=== PATIENT | female | born 1940 | race Caucasian/White ===

== ENCOUNTER 2016-09-09 08:52 | Emergency (ER) | payer MEDICARE, BC ==
[~2016-09-09] VITALS: Ht 151.1 cm; Wt 72.7 kg
[~2016-09-09 08:52] MED LIST: ACET-820 PO; CETI10CA19 PO; HYDR12.523 PO; LISI-621 PO; MELO-31 PO; METO100T97 PO; VITA1TAB21 PO; [UNRECOGNIZED DRUG - CODE] PO; [UNRECOGNIZED DRUG - OTHER] PO
[2016-09-09 08:58] VITALS: Ht 151.1 cm; Wt 72.7 kg
--- OUTSIDE RECORDS SUMMARY | 2016-09-09 08:58 | XMS REPORT | Continuity of Care Document ---
Author Author Lidia Gong RN [facility] Ambulatory Address [facility] [place] [address] Phone Unavailable Care Team Providers Care Waste Reduction Coordinator Name Role Phone Tal Espinosa PP Unavailable Payers Payer name Insurance type Covered republican ID Authorization(s) Unknown Problems Condition Effective Dates (start - stop) Clinical Status Pneumonia Vaccine - NEED FOR PROPHYLACTIC VACCINATION WITH COMBINED [id number] ( DTP) (DTAP) VACCINE - Hypertension, Benign - *Chronic Depression - *Chronic Anxiety - *Chronic Headache - *Chronic Urinary Tract Infection - *Acute Foot pain - *Chronic Dependent edema - *Chronic Hypertension, Benign - *Chronic Depression - *Chronic Anxiety - *Chronic Hypertension, Benign - Chronic Depression - Chronic Anxiety - Chronic Hypertension, Benign - *Chronic Depression - *Chronic Anxiety - *Chronic Headache - *Chronic Hypertension, Benign - *Controlled Tension headache - *Chronic Depression - *Controlled Anxiety - *Chronic Upper Respiratory Infection, Acute - *Acute Urinary incontinence - *Acute Other functional disorder of bladder - *Acute Anxiety - *Chronic Hypertension, Benign - *Chronic Depression - *Chronic OVERWEIGHT - TENSION HEADACHE - 311 - DEPRESSIVE DISORDER NEC - MGRN WO AURA WO NTRC MGR - INFEC OTITIS EXTERNA NOS - Hypertension, Benign - *Chronic Depression - *Chronic Anxiety - *Chronic Ankle pain, chronic - *Chronic Other chronic pain - *Chronic Family History Family Member Diagnosis Age At Onset Status Unknown Social History Social History Element Description Quantity Unknown Allergies, Adverse Reactions, Alerts Substance Reaction Severity Status CIPROFLOXACIN PALPITATIONS Unknown CIPROFLOXACIN HCL PALPITATIONS Unknown Medications Medication Instructions Dosage Effective Dates (start - stop) Status Zyrtec 10 mg tablet take 1 tablet (10MG) by oral route every day as needed 10 MG - Active Aleve 220 mg tablet take 1 tablet (220MG) by oral route every 12 hours as needed as needed 220 MG - Active Vitamin B-100 Complex tablet takes 1 qd - Active Vitamin D3 1,000 unit capsule take daily - Active metoprolol tartrate 100 mg tablet Take 1 tablet by mouth twice a day. - Active lisinopril 20 mg tablet take 1 tablet (20MG) by oral route every day 20 MG - Active hydrochlorothiazide 25 mg tablet Take 1 tablet by mouth every day. 2013 - Active acetaminophen 300 mg-codeine 30 mg tablet Take 0.5 tablets by mouth every 4 to 6 hours as needed for migraines. - Active carisoprodol 350 mg tablet Take 1 tablet by mouth every day. - Active Immunizations Vaccine Date Status Comments Tdap (Boostrix r) completed Pneumo (2 yrs or older)(PPV) completed Flu (split) (3 yrs or older) cancelled - Cancelled reason: Duplicate order. Results Test Name Date and Time Measure Units Reference Range Abnormal Flag Comments Panel Description: Chemistry Profile Glucose 11:01:00 93 mg/dL 70-99 BUN 11:01:00 26 mg/dL 10-20 H Creatinine 11:01:00 0.83 mg/dL 0.57-1.11 Calcium 11:01:00 9.6 mg/dL 8.9-10.5 Sodium 11:01:00 143 mEq/L 135-144 Potassium 11:01:00 4.2 mEq/L 3.5-5.2 Chloride 11:01:00 108 mEq/L 99-111 CO2 11:01:00 26 mEq/L 22-31 Albumin 11:01:00 4.1 g/dL 3.4-4.8 Bilirubin Total 11:01:00 0.5 mg/dL 0.2-1.2 Alkaline Phosphatase 11:01:00 106 U/L 40-150 Protein 11:01:00 7.1 g/dL 6.2-8.1 ALT (SGPT) 11:01:00 36 U/L 0-55 AST (SGOT) 11:01:00 37 U/L 5-34 H Anion Gap 11:01:00 9 3-20 Globulin 11:01:00 3.0 g/dL 1.8-4.0 Testing performed at [facility] [address] [place] [address] [employer]phalt Distributor Operator Josué Vasquez MD Panel Description: EGFR-[facility] eGFR 11:01:00 >60 mL/min >60 Multiply eGFR results by 1.21 for race.Testing performed at [facility] [address] [place] [address] [employer]phalt Distributor Operator Josué Vasquez MD Vital Signs Date / Time: Height Weight Pulse Rate Blood Pressure Temperature /10:06:00 57.50 in 169.00 lbs 72 /min 132/82 mm[Hg] 97.4 F Procedures Procedure Date PNEUMOCOCCAL VACCINE,ADULT,SQ OR IM ADMINISTRATION OF PNEUMONIA SHOT TDAP VACCINE >7 IM IMMUNIZ,ADMIN,SINGLE Encounters Encounter Location Date Patient Visit [facility] Patient Visit [facility] Patient Visit [facility] Patient Visit [facility] Patient Visit [facility] Patient Visit [facility] Patient Visit [facility] Patient Visit [facility] Patient Visit [facility] Patient Visit [facility] Patient Visit [facility] Patient Visit Conversion Patient Visit [facility] Patient Visit [facility] Advance Directives Directive Effective Date Unknown
--- OUTSIDE RECORDS SUMMARY | 2016-09-09 08:58 | XMS REPORT | Referral Summary ---
Author Author [facility], Family Medicine Organization [facility] Address Unknown Phone Unavailable Care Team Providers Care Cytology Teacher Name Role Phone Romeo Espinosa Primary Care Physician [phone] Encounter [facility] [id number] Date(s): 12/27/15 - 12/27/15 [facility] [address] [place] [id number] Discharge Diagnosis: Varicose vein Discharge Diagnosis: Pedal edema Discharge Disposition: 01-Home or Self Care Attending Physician: Brittani Lea APRN Admitting Physician: Brittani Lea APRN Vital Signs Most recent to 1 oldest [Reference Range]: Temperature Tympanic 37 degC [36.6-38.1 degC] (12/27/15 10:08 AM) Peripheral Pulse 84 bpm Rate [60-100 bpm] (12/27/15 10:08 AM) Blood Pressure 144/78 mmHg [90-140/60-90 mmHg] *HI* (12/27/15 10:08 AM) Problem List Condition Effective Dates Status Health Status Informant Anxiety state Active (finding)(Confirmed) Benign essential Active hypertension (disorder)(Confirmed ) Depression(Confirmed Active ) Ear Active infection(Confirmed) 1 Menopausal Active symptom(Confirmed) Migraine 1970 Active headache(Confirmed) Overweight(Confirmed Active ) Rosacea(Confirmed) 2004 Active Tension 1970 Active headache(Confirmed) 1Buszzing in ears Allergies, Adverse Reactions, Alerts Substance Reaction Severity Status ciprofloxacin PALPITATIONS Active Medications carisoprodol 350 mg oral tablet 350 mg 1 tabs, Oral, Daily, [facility], # 30 tabs, 0 Refill(s) Start Date: 12/14/15 Status: Ordered hydrochlorothiazide 25 mg oral tablet See Instructions, TAKE ONE TABLET BY MOUTH ONCE DAILY, # 30 tabs, 5 Refill(s), eRx: [id number], TAKE ONE TABLET BY MOUTH ONCE DAILY Start Date: 08/25/15 Status: Ordered hydrocortisone 1 APPLICATION, Topical, As Indicated, Rash, 0 Refill(s) Start Date: 04/02/14 Status: Ordered Lasix 20 mg oral tablet 20 mg 1 tabs, Oral, Daily, Take dly for one week then take daily as needed for swelling., # 30 tabs, 0 Refill(s), Pharmacy: [facility], 1 tabs Oral Daily,Instr:Take dly for one week then take daily as needed for swelling. Start Date: 12/27/15 Status: Ordered lisinopril 20 mg oral tablet See Instructions, TAKE ONE TABLET BY MOUTH ONCE DAILY, # 60 tabs, 2 Refill(s), eRx: [facility], TAKE ONE TABLET BY MOUTH ONCE DAILY Start Date: 09/15/15 Status: Ordered Metoprolol Tartrate 100 mg oral tablet See Instructions, TAKE ONE TABLET BY MOUTH TWICE DAILY, # 60 tabs, 5 Refill(s), eRx: [facility], TAKE ONE TABLET BY MOUTH TWICE DAILY Start Date: 06/24/15 Status: Ordered metroNIDAZOLE 0.75% topical cream 1 antony, Topical, BID, # 30 g, 1 Refill(s), Pharmacy: [facility] Start Date: 07/26/15 Status: Ordered Tylenol with Codeine #3 oral tablet 1 tabs, Oral, q4hr, as needed for pain, [facility], # 30 tabs, 0 Refill(s ) Start Date: 12/27/15 Status: Ordered Vitamin B Complex oral tablet 1 tabs, Oral, Daily, # 100 tabs, 0 Refill(s) Start Date: 04/02/14 Status: Ordered Vitamin D with Minerals oral tablet 1 tabs, Oral, Daily, # 90 tabs, 0 Refill(s) Start Date: 04/02/14 Status: Ordered ZyrTEC 10 mg oral tablet 1 tabs, Oral, Daily, as needed for allergy symptoms, # 10 tabs, 0 Refill(s) Start Date: 04/02/14 Status: Ordered Results No data available for this section Immunizations Vaccine Date Refusal Reason tetanus/diphth/pertuss (Tdap) adult/adol 07/17/13 pneumococcal 23-polyvalent vaccine 07/17/13 Procedures Procedure Date Related Diagnosis Body Site Colonoscopy 05/2006 Social History Social History Type Response Smoking Status Never smoker Assessment and Plan Extracted from: Title: Office Visit Note-pedal Author: Brittani Lea APRN Date: edema Assessment/Plan 1.Pedal edema Lasix 20 mg daily 1 week thenas needed. Encourage her to keep her feet elevated above her yrphl54-32 minutes morning and afternoon. Impression stockings may be of benefit. Avoid salt. Reassured patient I did not see any signs of deep vein thrombosis. 2.Varicose vein Recommend support stockings. Orders: furosemide, 20 mg 1 tabs, Oral, Daily, Take dly for one week then take daily as needed for swelling., # 30 tabs, 0 Refill(s), Pharmacy: [id number], 1 tabs Oral Daily,Instr:Take dly for one week then take daily as needed for swelling.
--- OUTSIDE RECORDS SUMMARY | 2016-09-09 08:58 | XMS REPORT | Referral Summary ---
Author Author [facility] Organization [facility] Address Unknown Phone Unavailable Care Team Providers Care Appeals Officer Name Role Phone Romeo Espinosa Primary Care Physician [phone] Encounter [facility] Date(s): 06/07/15 - 06/07/15 [facility], [address] [place] [id number] Discharge Disposition: 01-Home or Self Care Attending Physician: Edgar Verduzco APRN Admitting Physician: Edgar Verduzco APRN Vital Signs Most recent to 1 oldest [Reference Range]: Peripheral Pulse 81 bpm Rate [60-100 bpm] (06/07/15 1:22 PM) Respiratory Rate 18 br/min [14-20 br/min] (06/07/15 1:22 PM) Blood Pressure 142/82 mmHg [90-140/60-90 mmHg] *HI* (06/07/15 1:22 PM) SpO2 98 % (06/07/15 1:22 PM) Problem List Condition Effective Dates Status Health [...] tablet 350 mg 1 tabs, Oral, Daily, [facility], # 30 tabs, 0 Refill(s) Start Date: 02/25/15 Status: Ordered hydrochlorothiazide 25 mg oral tablet See Instructions, TAKE ONE TABLET BY MOUTH EVERY DAY, # 30 tabs, 2 Refill(s), [facility]Rx: [facility], TAKE ONE TABLET BY MOUTH EVERY DAY Start Date: 08/26/14 Status: Ordered HYDROCHLOROTHIAZIDE 25MG TAB See Instructions, TAKE ONE TABLET BY MOUTH ONCE DAILY, # 30 tabs, 5 Refill(s), eRx: [place] [address], TAKE ONE TABLET BY MOUTH ONCE DAILY Start Date: 12/22/14 Status: Ordered hydrocortisone 1 APPLICATION, Topical, As Indicated, Rash, 0 Refill(s) Start Date: 04/02/14 Status: Ordered lisinopril 20 mg oral tablet See Instructions, TAKE ONE TABLET BY MOUTH EVERY DAY, # 60 tabs, 3 Refill(s), Pharmacy: [place] [id number] Start Date: 10/12/14 Status: Ordered meloxicam 7.5 mg oral tablet 1 tabs, Oral, Daily, # 30 tabs, 0 Refill(s), Pharmacy: [place] [address], 1 tabs Oral Daily Start Date: 04/23/14 Status: Ordered Metoprolol Tartrate 100 mg oral tablet See Instructions, TAKE ONE TABLET BY MOUTH TWICE DAILY, # 60 tabs, 2 Refill(s), eRx: [place] [id number], TAKE ONE TABLET BY MOUTH TWICE DAILY Start Date: 11/03/14 Status: Ordered metroNIDAZOLE 0.75% topical cream 1 antony, Topical, BID, # 30 g, 0 Refill(s), Pharmacy: [place] [id number] Start Date: 04/02/14 Status: Ordered Tylenol with Codeine #3 oral tablet 1 tabs, Oral, q4hr, as needed for pain, [facility], # 30 tabs, 0 Refill(s ) Start Date: 04/28/15 Status: Ordered Vitamin B Complex oral tablet [...] Smoking Status Never smoker Assessment and Plan No data available for this section
--- OUTSIDE RECORDS SUMMARY | 2016-09-09 08:58 | XMS REPORT | Referral Summary ---
Author Author [facility] Organization [facility] Address Unknown Phone Unavailable Care Team Providers Care Adoption Counselor Name Role Phone Romeo Espinosa Primary Care Physician [phone] Encounter [facility] Date(s): 10/25/15 - 10/25/15 [facility] [address] [place] [id number] Discharge Diagnosis: Rosacea Discharge Diagnosis: Benign essential hypertension Discharge Diagnosis: Depression Discharge Diagnosis: Migraine without aura and without status migrainosus, not intractable Discharge Diagnosis: Anxiety state Discharge Disposition: 01-Home or Self Care Attending Physician: Tal Espinosa MD Admitting Physician: Tal Espinosa MD Vital Signs Most recent to 1 oldest [Reference Range]: Temperature Tympanic 36.6 degC [36.6-38.1 degC] (10/25/15 10:07 AM) Peripheral Pulse 76 bpm Rate [60-100 bpm] (10/25/15 10:07 AM) Respiratory Rate 20 br/min [14-20 br/min] (10/25/15 10:07 AM) Blood Pressure 128/88 mmHg [90-140/60-90 mmHg] (10/25/15 10:07 AM) Problem List Condition Effective Dates Status [...] # 30 tabs, 0 Refill(s) Start Date: 07/07/15 Status: Ordered hydrochlorothiazide 25 mg oral tablet See Instructions, TAKE ONE TABLET BY MOUTH ONCE DAILY, # 30 tabs, 5 Refill(s), eRx: [place] [id number], TAKE ONE TABLET BY MOUTH ONCE DAILY Start Date: 08/25/15 Status: Ordered HYDROCHLOROTHIAZIDE 25MG TAB See Instructions, TAKE ONE TABLET BY MOUTH ONCE DAILY, # 30 tabs, 5 Refill(s), eRx: [place] [id number], TAKE ONE TABLET BY MOUTH ONCE DAILY Start Date: 12/22/14 Status: Ordered hydrocortisone 1 APPLICATION, Topical, As Indicated, Rash, 0 Refill(s) Start Date: 04/02/14 Status: Ordered lisinopril 20 mg oral tablet See Instructions, TAKE ONE TABLET BY MOUTH ONCE DAILY, # 60 tabs, 2 Refill(s), eRx: [place] [id number], TAKE ONE TABLET BY MOUTH ONCE DAILY Start Date: 09/15/15 Status: Ordered Metoprolol Tartrate 100 mg oral tablet See Instructions, TAKE ONE TABLET BY MOUTH TWICE DAILY, # 60 tabs, 5 Refill(s), eRx: [place] [id number], TAKE ONE TABLET BY MOUTH TWICE DAILY Start Date: 06/24/15 Status: Ordered metroNIDAZOLE 0.75% topical cream 1 antony, Topical, BID, # 30 g, 1 Refill(s), Pharmacy: [place] [id number] Start Date: 07/26/15 Status: Ordered Tylenol with Codeine #3 oral tablet 1 tabs, Oral, q4hr, as needed for pain, [facility], # 30 tabs, 0 Refill(s ) Start Date: 10/05/15 Status: Ordered Vitamin B Complex oral tablet [...] and Plan Extracted from: Title: Office Visit Note Author: Tal Espinosa MD Date: 10/25/15 Assessment/Plan Anxiety state Chronic stable on current medications no changes are recommended. Ordered: Office Visit Level 4 Est 01275 Benign essential hypertension Blood pressure appears to be well controlled. Current medications reviewed report card reviewed no changes are recommended. Fasting laboratory studies ordered for later this week. Three-month follow- up recommended. Ordered: CBC w/ Differential Comprehensive Metabolic Panel Lipid Panel Office Visit Level 4 Est 98388 Depression Chronic and overall stable no change in current treatment is recommended. Ordered: Office Visit Level 4 Est 85923 Migraine without aura and without status migrainosus, not intractable Headaches have been fairly well controlled. No change in treatment plan is recommended. Ordered: Office Visit Level 4 Est 91517 Rosacea She's had some minor irritation on the skin of her face and a little bit in the scalp. She's usinghead and shoulders on the scalp and that seems to be helpful. We talked about considering T-Gel shampoo as well. If she has further problems she'll let us know. Ordered: Office Visit Level 4 Est 09129
--- OUTSIDE RECORDS SUMMARY | 2016-09-09 08:58 | XMS REPORT | Referral Summary ---
Author Organization Unknown Address Unknown Phone Unavailable Care Team Providers Care Education Liaison Name Role Phone Romeo Espinosa Primary Care Physician [phone] Encounter [facility] Date(s): 10/12/14 - 10/12/14 [facility], [address] [place] [id number] Discharge Diagnosis: Anxiety state Discharge Diagnosis: Vertigo Discharge Diagnosis: Benign essential hypertension Discharge Disposition: Home or Self Care Attending Physician: Tal Espinosa MD Admitting Physician: Tal Espinosa MD Vital Signs Most recent to 1 oldest [Reference Range]: Temperature Tympanic 36.9 degC [36.6-38.1 degC] (10/12/14 9:13 AM) Blood Pressure 126/80 mmHg [90-140/60-90 mmHg] (10/12/14 9:13 AM) Problem List Condition Effective Dates Status [...] Active Medications carisoprodol 350 mg oral tablet 1 tabs, Oral, Daily, [facility], # 30 tabs, 0 Refill(s) Special Instructions: [facility] Start Date: 09/27/14 Status: Ordered hydrochlorothiazide 25 mg oral tablet See Instructions, TAKE ONE TABLET BY MOUTH EVERY DAY, # 30 tabs, 2 Refill(s), [facility], TAKE ONE TABLET BY MOUTH EVERY DAY Special Instructions: TAKE ONE TABLET BY MOUTH EVERY DAY Start Date: 08/26/14 Status: Ordered hydrocortisone 1 APPLICATION, Topical, As Indicated, Rash, 0 Refill(s) Start Date: 04/02/14 Status: Ordered lisinopril 20 mg oral tablet See Instructions, TAKE ONE TABLET BY MOUTH EVERY DAY, # 60 tabs, 3 Refill(s), Pharmacy: [place] [address] Special Instructions: TAKE ONE TABLET BY MOUTH EVERY DAY Start Date: 10/12/14 Status: Ordered meloxicam 7.5 mg oral tablet 1 tabs, Oral, Daily, # 30 tabs, 0 Refill(s), Pharmacy: [place] [address], 1 tabs Oral Daily Start Date: 04/23/14 Status: Ordered Metoprolol Tartrate 100 mg oral tablet See Instructions, TAKE ONE TABLET BY MOUTH TWICE DAILY, # 60 unknown unit, 3 Refill(s), Pharmacy: [place] [address], TAKE ONE TABLET BY MOUTH TWICE DAILY Special Instructions: TAKE ONE TABLET BY MOUTH TWICE DAILY Start Date: 01/27/14 Status: Ordered metroNIDAZOLE 0.75% topical cream 1 antony, Topical, BID, # 30 g, 0 Refill(s), Pharmacy: [place] [address] Start Date: 04/02/14 Status: Ordered Tylenol with Codeine #3 oral tablet 1 tabs, Oral, q4hr, as needed for pain, [facility], # 30 tabs, 0 Refill(s ) Special Instructions: [facility] Start Date: 09/27/14 Status: Ordered Vitamin B Complex oral tablet [...] Refusal Reason tetanus/diphth/pertuss (Tdap) adult/adol 07/17/13 pneumococcal 13-valent conjugate vaccine 07/17/13 Procedures Procedure Date Related Diagnosis Body Site Colonoscopy 05/2006 Social History Social History Type Response Smoking Status Never smoker Assessment and Plan Extracted from: Title: Ambulatory Patient Education Author: Tal Espinosa MD Date: 4 /28/15 Family Medicine Vertigo Vertigo means you feel like you or your surroundings are moving when they are not. Vertigo can be dangerous if it occurs when you are at work, driving, or performing difficult activities. CAUSES Vertigo occurs when there is a conflict of signals sent to your brain from the visual and sensory systems in your body. There are many different causes of vertigo, including: Infections, especially in the inner ear. A bad reaction to a drug or misuse of alcohol and medicines. Withdrawal from drugs or alcohol. Rapidly changing positions, such as lying down or rolling over in bed. A migraine headache. Decreased blood flow to the brain. Increased pressure in the brain from a head injury, infection, tumor, or bleeding. SYMPTOMS You may feel as though the world is spinning around or you are falling to the ground. Because your balance is upset, vertigo can cause nausea and vomiting. You may have involuntary eye movements (nystagmus ). DIAGNOSIS Vertigo is usually diagnosed by physical exam. If the cause of your vertigo is unknown, your caregiver may perform imaging tests, such as an MRI scan ( magnetic resonance imaging ). TREATMENT Most cases of vertigo resolve on their own, without treatment. Depending on the cause, your caregiver may prescribe certain medicines. If your vertigo is related to body position issues, your caregiver may recommend movements or procedures to correct the problem. In rare cases, if your vertigo is caused by certain inner ear problems, you may need surgery. HOME CARE INSTRUCTIONS Follow your caregiver's instructions. Avoid driving. Avoid operating heavy machinery. Avoid performing any tasks that would be dangerous to you or others during a vertigo episode. Tell your caregiver if you notice that certain medicines seem to be causing your vertigo. Some of the medicines used to treat vertigo episodes can actually make them worse in some people. SEEK IMMEDIATE MEDICAL CARE IF: Your medicines do not relieve your vertigo or are making it worse. You develop problems with talking, walking, weakness, or using your arms, hands, or legs. You develop severe headaches. Your nausea or vomiting continues or gets worse. You develop visual changes. A family member notices behavioral changes. Your condition gets worse. MAKE SURE YOU: Understand these instructions. Will watch your condition. Will get help right away if you are not doing well or get worse. Document Released: 03/13/2006 Document Revised: 08/25/2012 Document Reviewed: [employer] Patient Information 2014 [employer]. No follow up information was provided. Extracted from: Title: Office Visit Note Author: Tal Espinosa MD Date: 10/12/14 Assessment/Plan Anxiety state Her vertigo seems to be making her anxiety a little bit worse but she doesn't really want to do anything about that at this time. Overall she's fairly stable. Ordered: Office Visit Level 3 Est 97906 Benign essential hypertension She is requesting refills on lisinopril those were provided. Recent laboratory studies were reviewed today. Ordered: Office Visit Level 3 Est 00793 Vertigo Think this is a benign positional vertigo however because of its ongoing and persistent nature of recommended an ear nose and throat consultation that will be arranged. Ordered: Office Visit Level 3 Est 62025 Orders: lisinopril, See Instructions, TAKE ONE TABLET BY MOUTH EVERY DAY, # 60 tabs, 3 Refill(s), Pharmacy: [facility]
--- OUTSIDE RECORDS SUMMARY | 2016-09-09 08:58 | XMS REPORT | Referral Summary ---
Author Author [facility], Family Medicine Organization [facility] Address Unknown Phone Unavailable Care Team Providers Care Annual Giving Director Name Role Phone Romeo Espinosa Primary Care Physician [phone] Encounter VC Date(s): 11/23/14 - 11/23/14 [facility] [address] [place] [id number] Discharge Diagnosis: Tension headache Discharge Diagnosis: Hammertoe Discharge Diagnosis: Benign essential hypertension Discharge Diagnosis: Anxiety state Discharge Disposition: 01-Home or Self Care Attending Physician: Tal Espinosa MD Admitting Physician: Tal Espinosa MD Vital Signs Most recent to 1 oldest [Reference Range]: Temperature Tympanic 36.8 degC [36.6-38.1 degC] (11/23/14 10:28 AM) Peripheral Pulse 72 bpm Rate [60-100 bpm] (11/23/14 10:28 AM) Respiratory Rate 16 br/min [14-20 br/min] (11/23/14 10:28 AM) Blood Pressure 112/68 mmHg [90-140/60-90 mmHg] (11/23/14 10:28 AM) Problem List Condition Effective Dates Status [...] DAY, # 30 tabs, 2 Refill(s), eRx: [place] [id number], TAKE ONE TABLET BY MOUTH EVERY DAY Start Date: 08/26/14 Status: Ordered HYDROCHLOROTHIAZIDE 25MG TAB See Instructions, TAKE ONE TABLET BY MOUTH ONCE DAILY, # 30 tabs, 5 Refill(s), eRx: [place] [id number], TAKE ONE TABLET BY MOUTH ONCE DAILY Start Date: 12/22/14 Status: Ordered hydrocortisone 1 APPLICATION, Topical, As Indicated, Rash, 0 Refill(s) Start Date: 04/02/14 Status: Ordered lisinopril 20 mg oral tablet See Instructions, TAKE ONE TABLET BY MOUTH EVERY DAY, # 60 tabs, 3 Refill(s), Pharmacy: [place] [id number] Start Date: 10/12/14 Status: Ordered meloxicam 7.5 mg oral tablet 1 tabs, Oral, Daily, # 30 tabs, 0 Refill(s), Pharmacy: [place] [id number], 1 tabs Oral Daily Start Date: 04/23/14 Status: Ordered Metoprolol Tartrate 100 mg oral tablet See Instructions, TAKE ONE TABLET BY MOUTH TWICE DAILY, # 60 tabs, 2 Refill(s), eRx: [place] [id number], TAKE ONE TABLET BY MOUTH TWICE DAILY Start Date: 11/03/14 Status: Ordered metroNIDAZOLE 0.75% topical cream 1 antony, Topical, BID, # 30 g, 0 Refill(s), Pharmacy: [place] [id number] Start Date: 04/02/14 Status: Ordered Tylenol with Codeine #3 oral tablet 1 tabs, Oral, q4hr, as needed for pain, [facility], # 30 tabs, 0 Refill(s [...] Refill(s) Start Date: 04/02/14 Status: Ordered Results Hematology Most recent to 1 oldest [Reference Range]: WBC [4.8-10.8 6.9 10*3/uL 10*3/uL] (11/23/14 10:55 AM) RBC [4.00-5.20 4.27 10*6/uL 10*6/uL] (11/23/14 10:55 AM) Hgb [12.0-16.0 13.2 gm/dL gm/dL] (11/23/14 10:55 AM) Hct [37.0-47.0 %] 39.4 % (11/23/14 10:55 AM) MCV [82.0-99.0 fL] 92.3 fL (11/23/14 10:55 AM) MCH [27.0-32.0 pg] 30.9 pg (11/23/14 10:55 AM) MCHC [32.0-36.0 33.5 gm/dL gm/dL] (11/23/14 10:55 AM) RDW [11.5-14.5 %] 12.9 % (11/23/14 10:55 AM) Platelet [150-400 163 10*3/uL 10*3/uL] (11/23/14 10:55 AM) MPV [8.8-14.8 fL] 12.3 fL (11/23/14 10:55 AM) Immature 0.1 % Granulocytes (11/23/14 10:55 AM) [0.0-1.0 %] Neutrophils [51-75 70 % %] (11/23/14 10:55 AM) Lymphocytes [20-46 20 % %] (11/23/14 10:55 AM) Monocytes [4-11 %] 7 % (11/23/14 10:55 AM) Eosinophils [0-4 %] 3 % (11/23/14 10:55 AM) Basophils [0-2 %] 0 % (11/23/14 10:55 AM) Neutro Absolute 4.88 10*3 [1.90-7.00 10*3] (11/23/14 10:55 AM) Lymph Absolute 1.35 10*3 [0.80-3.30 10*3] (11/23/14 10:55 AM) [place] Absolute 0.46 10*3 [0.30-1.00 10*3] (11/23/14 10:55 AM) Eos Absolute 0.23 10*3 [0.00-0.50 10*3] (11/23/14 10:55 AM) Baso Absolute 0.01 10*3 [0.00-0.20 10*3] (11/23/14 10:55 AM) Chemistry Most recent to 1 oldest [Reference Range]: Sodium Lvl [135-144 146 mEq/L mEq/L] *HI* (11/23/14 10:55 AM) Potassium Lvl 3.5 mEq/L [3.5-5.2 mEq/L] (11/23/14 10:55 AM) Chloride [99-111 110 mEq/L mEq/L] (11/23/14 10:55 AM) CO2 [22-31 mEq/L] 25 mEq/L (11/23/14 10:55 AM) AGAP [3-20] 11 (11/23/14 10:55 AM) BUN [10-20 mg/dL] 21 mg/dL *HI* (11/23/14 10:55 AM) Glucose Lvl [70-99 103 mg/dL mg/dL] *HI* (11/23/14 10:55 AM) Creatinine Lvl 1.00 mg/dL [0.57-1.11 mg/dL] (11/23/14 10:55 AM) eGFR [>60 mL/min] 54 mL/min 1 *ABN* (11/23/14 10:55 AM) Calcium Lvl 9.6 mg/dL [8.9-10.5 mg/dL] (11/23/14 10:55 AM) 1Result Comment: Multiply eGFR results by 1.21 for race. Immunizations Vaccine Date Refusal Reason tetanus/diphth/pertuss (Tdap) adult/adol 07/17/13 pneumococcal 23-polyvalent vaccine 07/17/13 Procedures Procedure Date Related Diagnosis Body Site Colonoscopy 05/2006 Social History Social History Type Response Smoking Status Never smoker Assessment and Plan Extracted from: Title: Ambulatory Patient Education Author: Tal Espinosa MD Date: Family Medicine Hypertension As your heart beats, it forces blood through your arteries. This force is your blood pressure. If the pressure is too high, it is called hypertension (HTN) or high blood pressure. HTN is dangerous because you may have it and not know it. High blood pressure may mean that your heart has to work harder to pump blood. Your arteries may be narrow or stiff. The extra work puts you at risk for heart disease, stroke, and other problems. Blood pressure consists of two numbers, a higher number over a lower, 110/72, for example. It is stated as "110 over 72." The ideal is below 120 for the top number (systolic ) and under 80 for the bottom (diastolic ). Write down your blood pressure today. You should pay close attention to your blood pressure if you have certain conditions such as: Heart failure. Prior heart attack. Diabetes Chronic kidney disease. Prior stroke. Multiple risk factors for heart disease. To see if you have HTN, your blood pressure should be measured while you are seated with your arm held at the level of the heart. It should be measured at least twice. A one-time elevated blood pressure reading (especially in the Emergency Department) does not mean that you need treatment. There may be conditions in which the blood pressure is different between your right and left arms. It is important to see your caregiver soon for a recheck. Most people have essential hypertension which means that there is not a specific cause. This type of high blood pressure may be lowered by changing lifestyle factors such as: Stress. Smoking. Lack of exercise. Excessive weight. Drug/tobacco/alcohol use. Eating less salt. Most people do not have symptoms from high blood pressure until it has caused damage to the body. Effective treatment can often prevent, delay or reduce that damage. TREATMENT When a cause has been identified, treatment for high blood pressure is directed at the cause. There are a large number of medications to treat HTN. These fall into several categories, and your caregiver will help you select the medicines that are best for you. Medications may have side effects. You should review side effects with your caregiver. If your blood pressure stays high after you have made lifestyle changes or started on medicines, Your medication(s) may need to be changed. Other problems may need to be addressed. Be certain you understand your prescriptions, and know how and when to take your medicine. Be sure to follow up with your caregiver within the time frame advised ( usually within two weeks) to have your blood pressure rechecked and to review your medications. If you are taking more than one medicine to lower your blood pressure, make sure you know how and at what times they should be taken. Taking two medicines at the same time can result in blood pressure that is too low. SEEK IMMEDIATE MEDICAL CARE IF: You develop a severe headache, blurred or changing vision, or confusion. You have unusual weakness or numbness, or a faint feeling. You have severe chest or abdominal pain, vomiting, or breathing problems. MAKE SURE YOU: Understand these instructions. Will watch your condition. Will get help right away if you are not doing well or get worse. Document Released: 06/03/2006 Document Revised: 08/25/2012 Document Reviewed: ExitTURN8 Patient Information 2014 [employer]. No follow up information was provided. Extracted from: Title: Office Visit Note Author: Tal Espinosa MD Date: 11/23/14 Assessment/Plan Anxiety state Chronic stable no change in current treatment recommended. Ordered: Office Visit Level 4 Est 41001 Benign essential hypertension Blood pressure is well controlled no change in current treatment recommended. Laboratory studies ordered preoperatively. Ordered: Basic Metabolic Panel CBC w/ Differential Office Visit Level 4 Est 84164 Hammertoe Surgical treatment scheduled no change in current plan. She appears to be medically stable and is cleared for surgery. Tension headache Chronic stable no change in current treatment. Ordered: Office Visit Level 4 Est 48948
--- OUTSIDE RECORDS SUMMARY | 2016-09-09 08:59 | XMS REPORT | Referral Summary ---
Author Author [facility], [facility] Medicine Organization [facility] Address Unknown Phone Unavailable Care Team Providers Care Divisional Human Resources Director Name Role Phone Romeo Espinosa Primary Care Physician [phone] Encounter VC Date(s): 05/31/15 - 05/31/15 [facility], [address] [place] [address] Discharge Disposition: 01-Home or Self Care Attending Physician: Edgar Verduzco APRN Vital Signs Most recent to 1 oldest [Reference Range]: Temperature Tympanic 36.9 degC [36.6-38.1 degC] (05/31/15 3:42 PM) Peripheral Pulse 78 bpm Rate [60-100 bpm] (05/31/15 3:42 PM) Respiratory Rate 17 br/min [14-20 br/min] (05/31/15 3:42 PM) Blood Pressure 128/72 mmHg [90-140/60-90 mmHg] (05/31/15 3:42 PM) SpO2 98 % (05/31/15 3:42 PM) Problem List Condition Effective Dates Status [...] DAY, # 30 tabs, 2 Refill(s), eRx: [facility], TAKE ONE TABLET BY MOUTH EVERY DAY Start Date: 08/26/14 Status: Ordered HYDROCHLOROTHIAZIDE 25MG TAB See Instructions, TAKE ONE TABLET BY MOUTH ONCE DAILY, # 30 tabs, 5 Refill(s), eRx: [place] [address], TAKE ONE TABLET BY MOUTH ONCE DAILY Start Date: 12/22/14 Status: Ordered hydrocortisone 1 APPLICATION, Topical, As Indicated, Rash, 0 Refill(s) Start Date: 04/02/14 Status: Ordered lisinopril 20 mg oral tablet See Instructions, TAKE ONE TABLET BY MOUTH EVERY DAY, # 60 tabs, 3 Refill(s), Pharmacy: [place] [address] Start Date: 10/12/14 Status: Ordered meloxicam 7.5 mg oral tablet 1 tabs, Oral, Daily, # 30 tabs, 0 Refill(s), Pharmacy: [place] [address], 1 tabs Oral Daily Start Date: 04/23/14 Status: Ordered Metoprolol Tartrate 100 mg oral tablet See Instructions, TAKE ONE TABLET BY MOUTH TWICE DAILY, # 60 tabs, 2 Refill(s), eRx: [place] [address], TAKE ONE TABLET BY MOUTH TWICE DAILY Start Date: 11/03/14 Status: Ordered metroNIDAZOLE 0.75% topical cream 1 antony, Topical, BID, # 30 g, 0 Refill(s), Pharmacy: [place] [address] Start Date: 04/02/14 Status: Ordered Tylenol with Codeine #3 oral tablet 1 tabs, Oral, q4hr, as needed for pain, [facility], # 30 tabs, 0 Refill(s [...]
--- OUTSIDE RECORDS SUMMARY | 2016-09-09 08:59 | XMS REPORT | Referral Summary ---
Author Organization Unknown Address Unknown Phone Unavailable Care Team Providers Care Instructor Nurse Name Role Phone Romeo Espinosa Primary Care Physician [phone] Encounter VC Date(s): 09/06/14 - 09/06/14 [facility], [facility] [address] [place] [address] Discharge Diagnosis: Dizziness Discharge Diagnosis: Anxiety state Discharge Diagnosis: Benign essential hypertension Discharge Disposition: Home or Self Care Attending Physician: Tal Espinosa MD Admitting Physician: Tal Espinosa MD Vital Signs Most recent to 1 oldest [Reference Range]: Temperature Tympanic 36.5 degC [36.6-38.1 degC] *LOW* (09/06/14 4:22 PM) Peripheral Pulse 58 bpm Rate [60-100 bpm] *LOW* (09/06/14 4:22 PM) Blood Pressure 114/74 mmHg [90-140/60-90 mmHg] (09/06/14 4:22 PM) Problem List Condition Effective Dates Status [...] 0 Refill(s) Special Instructions: [facility] Start Date: 04/02/14 Status: Ordered hydrochlorothiazide 25 mg oral tablet See Instructions, TAKE ONE TABLET BY MOUTH EVERY DAY, # 30 tabs, 2 Refill(s), eRx: [id number], TAKE ONE TABLET BY MOUTH EVERY DAY Special Instructions: TAKE ONE TABLET BY MOUTH EVERY DAY Start Date: 08/26/14 Status: Ordered hydrocortisone 1 APPLICATION, Topical, As Indicated, Rash, 0 Refill(s) Start Date: 04/02/14 Status: Ordered lisinopril 20 mg oral tablet See Instructions, TAKE ONE TABLET BY MOUTH EVERY DAY, # 60 tabs, 3 Refill(s), eRx: [facility], TAKE ONE TABLET BY MOUTH EVERY DAY Special Instructions: TAKE ONE TABLET BY MOUTH EVERY DAY Start Date: 05/31/14 Status: Ordered meloxicam 7.5 mg oral tablet 1 tabs, Oral, Daily, # 30 tabs, 0 Refill(s), Pharmacy: [facility], 1 tabs Oral Daily Start Date: 04/23/14 Status: Ordered Metoprolol Tartrate 100 mg oral tablet See Instructions, TAKE ONE TABLET BY MOUTH TWICE DAILY, # 60 unknown unit, 3 Refill(s), Pharmacy: [facility], TAKE ONE TABLET BY MOUTH TWICE DAILY Special Instructions: TAKE ONE TABLET BY MOUTH TWICE DAILY Start Date: 01/27/14 Status: Ordered metroNIDAZOLE 0.75% topical cream 1 antony, Topical, BID, # 30 g, 0 Refill(s), Pharmacy: [facility] Start Date: 04/02/14 Status: Ordered Tylenol with Codeine #3 oral tablet 1 tabs, Oral, q4hr, as needed for pain, # 30 tabs, 0 Refill(s) Start Date: 08/17/14 Status: Ordered Vitamin B Complex oral tablet [...] to 1 oldest [Reference Range]: WBC [4.8-10.8 K/uL] 6.1 K/uL (09/06/14 4:45 PM) RBC [4.00-5.20 M/uL] 4.17 M/uL (09/06/14 4:45 PM) Hgb [12.0-16.0 12.6 gm/dL gm/dL] (09/06/14 4:45 PM) Hct [37.0-47.0 %] 38.0 % (09/06/14 4:45 PM) MCV [82.0-99.0 fL] 91.1 fL (09/06/14 4:45 PM) MCH [27.0-32.0 pg] 30.2 pg (09/06/14:45 PM) MCHC [32.0-36.0 33.2 gm/dL gm/dL] (09/06/14 4:45 PM) RDW [11.5-14.5 %] 13.2 % (09/06/14:45 PM) Platelet [150-400 146 K/uL K/uL] *LOW* (09/06/14 4:45 PM) MPV [8.8-14.8 fL] 12.2 fL (09/06/14 4:45 PM) Immature 0.2 % Granulocytes (09/06/14:45 PM) [0.0-1.0 %] Neutrophils [51-75 67 % %] (09/06/14 4:45 PM) Lymphocytes [20-46 22 % %] (09/06/14 4:45 PM) Monocytes [4-11 %] 7 % (09/06/14 4:45 PM) Eosinophils [0-4 %] 4 % (09/06/14 4:45 PM) Basophils [0-2 %] 1 % (09/06/14 4:45 PM) Neutro Absolute 4.05 THOUS [1.90-7.00 THOUS] (09/06/14 4:45 PM) Lymph Absolute 1.31 THOUS [0.80-3.30 THOUS] (09/06/14 4:45 PM) [place] Absolute 0.40 THOUS [0.30-1.00 THOUS] (09/06/14 4:45 PM) Eos Absolute 0.27 THOUS [0.00-0.50 THOUS] (09/06/14 4:45 PM) Baso Absolute 0.03 THOUS [0.00-0.20 THOUS] (09/06/14 4:45 PM) Chemistry Most recent to 1 oldest [Reference Range]: Sodium Lvl [135-144 144 mEq/L mEq/L] (09/06/14 4:45 PM) Potassium Lvl 4.2 mEq/L [3.5-5.2 mEq/L] (09/06/14 4:45 PM) Chloride [99-111 112 mEq/L mEq/L] *HI* (09/06/14 4:45 PM) CO2 [22-31 mEq/L] 24 mEq/L (09/06/14 4:45 PM) AGAP [3-20] 8 (09/06/14 4:45 PM) BUN [10-20 mg/dL] 21 mg/dL *HI* (09/06/14 4:45 PM) Glucose Lvl [70-99 94 mg/dL mg/dL] (09/06/14 4:45 PM) Creatinine Lvl 0.81 mg/dL [0.57-1.11 mg/dL] (09/06/14 4:45 PM) eGFR [>60 mL/min] >60 mL/min 1 (09/06/14 4:45 PM) Calcium Lvl 9.2 mg/dL [8.9-10.5 mg/dL] (09/06/14 4:45 PM) Albumin Lvl [3.4-4.8 4.0 gm/dL gm/dL] (09/06/14 4:45 PM) Total Protein 6.9 gm/dL [6.2-8.1 gm/dL] (09/06/14 4:45 PM) Globulin [1.8-4.0 2.9 gm/dL gm/dL] (09/06/14 4:45 PM) ALT [0-55 unit/L] 28 unit/L (09/06/14 4:45 PM) AST [5-34 unit/L] 34 unit/L (09/06/14 4:45 PM) Alk Phos [40-150 97 unit/L unit/L] (09/06/14 4:45 PM) Bili Total [0.2-1.2 0.5 mg/dL mg/dL] (09/06/14 4:45 PM) 1Result Comment: Multiply eGFR results by 1.21 for race. Immunizations Vaccine Date Refusal Reason tetanus/diphth/pertuss (Tdap) adult/adol 07/17/13 pneumococcal 13-valent conjugate vaccine 07/17/13 Procedures Procedure Date Related Diagnosis Body Site Colonoscopy 05/2006 Social History Social History Type Response Smoking Status Never smoker Assessment and Plan Extracted from: Title: Ambulatory Patient Education Author: Tal Espionsa MD Date: Family Medicine Near-Syncope Near-syncope is sudden weakness, dizziness, or feeling like you might pass out ( faint ). This may occur when getting up after sitting or while standing for a long period of time. Near-syncope can be caused by a drop in blood pressure. This is a common reaction, but it may occur to a greater degree in people taking medicines to control their blood pressure. Fainting often occurs when the blood pressure or pulse is too low to provide enough blood flow to the brain to keep you conscious. Fainting and near-syncope are not usually due to serious medical problems. However, certain people should be more cautious in the event of near-syncope, including elderly patients, patients with diabetes, and patients with a history of heart conditions (especially irregular rhythms). CAUSES Drop in blood pressure. Physical pain. Dehydration. Heat exhaustion. Emotional distress. Low blood sugar. Internal bleeding. Heart and circulatory problems. Infections. SYMPTOMS Dizziness. Feeling sick to your stomach (nauseous ). Nearly fainting. Body numbness. Turning pale. Tunnel vision. Weakness. HOME CARE INSTRUCTIONS Lie down right away if you start feeling like you might faint. Breathe deeply and steadily. Wait until all the symptoms have passed. Most of these episodes last only a few minutes. You may feel tired for several hours. Drink enough fluids to keep your urine clear or pale yellow. If you are taking blood pressure or heart medicine, get up slowly, taking several minutes to sit and then stand. This can reduce dizziness that is caused by a drop in blood pressure. SEEK IMMEDIATE MEDICAL CARE IF: You have a severe headache. Unusual pain develops in the chest, abdomen, or back. There is bleeding from the mouth or rectum, or you have black or tarry stool. An irregular heartbeat or a very rapid pulse develops. You have repeated fainting or seizure-like jerking during an episode. You faint when sitting or lying down. You develop confusion. You have difficulty walking. Severe weakness develops. Vision problems develop. MAKE SURE YOU: Understand these instructions. Will watch your condition. Will get help right away if you are not doing well or get worse. Document Released: 06/03/2006 Document Revised: 08/25/2012 Document Reviewed: ExitCare Patient Information 2014 [employer]. No follow up information was provided. Extracted from: Title: Office Visit Note Author: Tal Espinosa MD Date: 09/06/14 Assessment/Plan Anxiety state Overall stable although this could be contributing to her dizziness. Some. No change in current treatment. Ordered: Office Visit Level 3 Est 23658 Benign essential hypertension Blood pressure is well controlled. We will check lab because of dizziness. No change in current treatment recommended. Ordered: CBC w/ Differential Comprehensive Metabolic Panel Office Visit Level 3 Est 83158 Dizziness Laboratory studies. We'll see what those show. No specific treatment if continues to be recurrent or further problems develop she'll let us now. Ordered: Office Visit Level 3 Est 94631
--- OUTSIDE RECORDS SUMMARY | 2016-09-09 08:59 | XMS REPORT | Referral Summary ---
Author Organization Unknown Address Unknown Phone Unavailable Care Team Providers Care Feller Hand Name Role Phone Romeo Espinosa Primary Care Physician [phone] Encounter VC Date(s): 07/14/14 - 07/14/14 [facility] ROBERTO [facility]keon, [facility] Family [address] [place] [address] Discharge Diagnosis: Inflamed internal hemorrhoid Discharge Diagnosis: Seasonal allergies Discharge Disposition: Home or Self Care Attending Physician: Brittani Lea APRN Admitting Physician: Brittani Lea APRN Vital Signs Most recent to 1 oldest [Reference Range]: Temperature Tympanic 36.8 degC [36.6-38.1 degC] (07/14/14 1:24 PM) Peripheral Pulse 72 bpm Rate [60-100 bpm] (07/14/14 1:24 PM) Blood Pressure 100/66 mmHg [90-140/60-90 mmHg] (07/14/14 1:24 PM) Problem List Condition Effective Dates Status Health Status Informant Anxiety state Active (finding)(Confirmed) Benign essential Active hypertension (disorder)(Confirmed ) Depression(Confirmed Active ) Ear Active infection(Confirmed) 1 Menopausal Active symptom(Confirmed) Migraine 1970 Active headache(Confirmed) Overweight(Confirmed Active ) Rosacea(Confirmed) 2004 Active Tension 1970 Active headache(Confirmed) 1Buszzing in ears Allergies, Adverse Reactions, Alerts Substance Reaction Severity Status ciprofloxacin PALPITATIONS Active Medications Anusol-HC 25 mg rectal suppository 1 supp, Rectal, BID, X 10 days, # 20 supp, 0 Refill(s), Pharmacy: [facility], 1 supp Rectal BID,x10 days Start Date: 07/14/14 Stop Date: 07/24/14 Status: Ordered carisoprodol 350 mg oral tablet 1 tabs, Oral, Daily, [facility], # 30 tabs, 0 Refill(s) Special Instructions: [facility] Start Date: 04/02/14 Status: Ordered hydrochlorothiazide 25 mg oral tablet See Instructions, TAKE ONE TABLET BY MOUTH EVERY DAY, # 30 unknown unit, 3 Refill(s), eRx: [facility], TAKE ONE TABLET BY MOUTH EVERY DAY Special Instructions: TAKE ONE TABLET BY MOUTH EVERY DAY Start Date: 03/29/14 Status: Ordered hydrocortisone 1 APPLICATION, Topical, As Indicated, Rash, 0 Refill(s) Start Date: 04/02/14 Status: Ordered lisinopril 20 mg oral tablet See Instructions, TAKE ONE TABLET BY MOUTH EVERY DAY, # 60 tabs, 3 Refill(s), eRx: [facility], TAKE ONE TABLET BY MOUTH EVERY DAY Special Instructions: TAKE ONE TABLET BY MOUTH EVERY DAY Start Date: 05/31/14 Status: Ordered meloxicam 7.5 mg oral tablet 1 tabs, Oral, Daily, # 30 tabs, 0 Refill(s), Pharmacy: [facility], 1 tabs Oral Daily Start Date: 04/23/14 Status: Ordered Metoprolol Tartrate 100 mg oral tablet See Instructions, TAKE ONE TABLET BY MOUTH TWICE DAILY, # 60 unknown unit, 3 Refill(s), Pharmacy: [facility], TAKE ONE TABLET BY MOUTH TWICE DAILY Special Instructions: TAKE ONE TABLET BY MOUTH TWICE DAILY Start Date: 01/27/14 Status: Ordered metroNIDAZOLE 0.75% topical cream 1 antony, Topical, BID, # 30 g, 0 Refill(s), Pharmacy: [place] [address] Start Date: 04/02/14 Status: Ordered Tylenol with Codeine #3 oral tablet 1 tabs, Oral, q4hr, as needed for pain, # 30 tabs, 0 Refill(s) Start Date: 05/27/14 Status: Ordered Vitamin B Complex oral tablet [...] Extracted from: Title: Office Visit Note Author: Brittani Lea SNOWBOARD DESIGNER Date: 07/14/14 Assessment/Plan Inflamed internal hemorrhoid Anusol supp twice a day 10 days. The goal is to have soft stools. Recommend taking Senokot S which is [id number] one tablet twice a day. If that is not enough May increase to 6 tablets total per day. If fails to improve let us know. Ordered: Office Visit Level 4 Est 66663 Seasonal allergies Recommend Zyrtec daily. If that does not help let us know. Ordered: Office Visit Level 4 Est 77120 Orders: hydrocortisone topical, 1 supp, Rectal, BID, X 10 days, # 20 supp, 0 Refill(s), Pharmacy: [facility], 1 supp Rectal BID,x10 days
--- OUTSIDE RECORDS SUMMARY | 2016-09-09 08:59 | XMS REPORT | Referral Summary ---
Author Author [facility] Organization [facility] Address Unknown Phone Unavailable Care Team Providers Care Loftsman Name Role Phone Romeo Espinosa Primary Care Physician [phone] Encounter VC Date(s): 07/26/15 - 07/26/15 [facility] [address] [place] [address]- Discharge Diagnosis: Varicose vein Discharge Diagnosis: Rosacea Discharge Diagnosis: Migraine headache Discharge Diagnosis: Benign essential hypertension Discharge Diagnosis: Anxiety state Discharge Disposition: 01-Home or Self Care Attending Physician: Tal Espinosa MD Admitting Physician: Tal Espinosa MD Vital Signs Most recent to 1 oldest [Reference Range]: Temperature Tympanic 36.6 degC [36.6-38.1 degC] (07/26/15 11:38 AM) Peripheral Pulse 80 bpm Rate [60-100 bpm] (07/26/15 11:38 AM) Respiratory Rate 16 br/min [14-20 br/min] (07/26/15 11:38 AM) Blood Pressure 148/90 mmHg [90-140/60-90 mmHg] *HI* (07/26/15 11:38 AM) Problem List Condition Effective Dates Status [...] BY MOUTH ONCE DAILY, # 30 tabs, eRx: [facility], TAKE ONE TABLET BY MOUTH ONCE DAILY Start Date: 07/19/15 Status: Ordered HYDROCHLOROTHIAZIDE 25MG TAB See Instructions, TAKE ONE TABLET BY MOUTH ONCE DAILY, # 30 tabs, 5 Refill(s), eRx: [facility], TAKE ONE TABLET BY MOUTH ONCE DAILY Start Date: 12/22/14 Status: Ordered hydrocortisone 1 APPLICATION, Topical, As Indicated, Rash, 0 Refill(s) Start Date: 04/02/14 Status: Ordered lisinopril 20 mg oral tablet See Instructions, TAKE ONE TABLET BY MOUTH ONCE DAILY, # 60 tabs, eRx: [facility], TAKE ONE TABLET BY MOUTH ONCE DAILY Start Date: 07/19/15 Status: Ordered Metoprolol Tartrate 100 mg oral tablet See Instructions, TAKE ONE TABLET BY MOUTH TWICE DAILY, # 60 tabs, 5 Refill(s), eRx: [facility], TAKE ONE TABLET BY MOUTH TWICE DAILY Start Date: 06/24/15 Status: Ordered metroNIDAZOLE 0.75% topical cream 1 antony, Topical, BID, # 30 g, 1 Refill(s), Pharmacy: [place] [id number] Start Date: 07/26/15 Status: Ordered Tylenol with Codeine #3 oral tablet 1 tabs, Oral, q4hr, as needed for pain, [facility], # 30 tabs, 0 Refill(s ) Start Date: 06/20/15 Status: Ordered Vitamin B Complex oral tablet [...] Visit Note Author: Tal Espinosa MD Date: 07/26/15 Assessment/Plan Anxiety state, Generalized anxiety disorder Chronic stable no change in current treatment is recommended. Ordered: Office Visit Level 4 Est 32123 Benign essential hypertension, Essential (primary) hypertension Blood pressures a little high here buteloy did not take her medications this morning. She'll continue to monitorfollow-up in 3 months. No change in current treatment plan recommended. Ordered: Office Visit Level 4 Est 23716 Migraine headache, Migraine without aura, not intractable, without status migrainosus He's are chronic and relatively stable no change in current treatment is recommended. Ordered: Office Visit Level 4 Est 36665 Other rosacea, Rosacea She was requesting a refill onmetronidazole creamand that was provided today. She'll continue to use it intermittently. Ordered: Office Visit Level 4 Est 31746 Varicose vein Reassurance at this pointthese are nonproblematic I would not recommend any type of treatment. If they become painful she starts having edema or further problems develop she'll let us know. Orders: metroNIDAZOLE topical, 1 antony, Topical, BID, # 30 g, 1 Refill(s), Pharmacy: [id number]
--- OUTSIDE RECORDS SUMMARY | 2016-09-09 08:59 | XMS REPORT | Continuity of Care Document ---
Author Author [facility] Organization [facility] Address Unknown Phone Unavailable Allergies Medications Problems Procedures Results Encounters ACCT No. Visit Date/Time Discharge Status Pt. Type Provider Facility Loc./Unit Complaint [id number] 07/17/2013 09:48:00 07/17/2013 23 :59:59 CLS Outpatient [id number] 04/13/2013 11:02:00 04/13/2013 23 :59:59 CLS Outpatient
--- OUTSIDE RECORDS SUMMARY | 2016-09-09 08:59 | XMS REPORT | Referral Summary ---
Author Author [facility] Organization [facility] Address Unknown Phone Unavailable Care Team Providers Care Cutter Barrel Drum Name Role Phone Romeo Espinosa Primary Care Physician [phone] Encounter Date(s): 05/31/15 - 05/31/15 [facility] [address] [place] [address] Discharge Disposition: 01-Home or Self Care Attending Physician: Gabriel Mccray MD Admitting Physician: Gabriel Mccray MD Vital Signs No data available for this section Problem List Condition Effective Dates Status Health [...] DAY, # 30 tabs, 2 Refill(s), eRx: [facility], TAKE ONE TABLET BY MOUTH EVERY DAY Start Date: 08/26/14 Status: Ordered HYDROCHLOROTHIAZIDE 25MG TAB See Instructions, TAKE ONE TABLET BY MOUTH ONCE DAILY, # 30 tabs, 5 Refill(s), eRx: [facility], TAKE ONE TABLET BY MOUTH ONCE DAILY Start Date: 12/22/14 Status: Ordered hydrocortisone 1 APPLICATION, Topical, As Indicated, Rash, 0 Refill(s) Start Date: 04/02/14 Status: Ordered lisinopril 20 mg oral tablet See Instructions, TAKE ONE TABLET BY MOUTH EVERY DAY, # 60 tabs, 3 Refill(s), Pharmacy: [place] [id number] Start Date: 10/12/14 Status: Ordered meloxicam 7.5 mg oral tablet 1 tabs, Oral, Daily, # 30 tabs, 0 Refill(s), Pharmacy: [place] [address], 1 tabs Oral Daily Start Date: 04/23/14 Status: Ordered Metoprolol Tartrate 100 mg oral tablet See Instructions, TAKE ONE TABLET BY MOUTH TWICE DAILY, # 60 tabs, 2 Refill(s), eRx: [place] [address], TAKE ONE TABLET BY MOUTH TWICE DAILY Start Date: 11/03/14 Status: Ordered metroNIDAZOLE 0.75% topical cream 1 antony, Topical, BID, # 30 g, 0 Refill(s), Pharmacy: [place] [id number] Start Date: 04/02/14 Status: Ordered Tylenol with Codeine #3 oral tablet 1 tabs, Oral, q4hr, as needed for pain, [facility], # 30 tabs, 0 [...]
--- OUTSIDE RECORDS SUMMARY | 2016-09-09 08:59 | XMS REPORT | Continuity of Care Document ---
Author Author Lakshmi [facility] RN Ambulatory Address [address] [place] [address] Phone Care Team Providers Care High Rigger Name Role Phone Tal Espinosa PP Unavailable Payers Payer name Insurance type Covered green party ID Authorization(s) Unknown Problems Condition Effective Dates (start - stop) Clinical Status Hypertension, Benign - *Chronic Depression - *Chronic Anxiety - *Chronic Headache - *Chronic Urinary Tract Infection - *Acute Foot pain - *Chronic Dependent edema - *Chronic Hypertension, Benign - *Chronic Depression - *Chronic Anxiety - *Chronic Hypertension, Benign - Chronic Depression - Chronic Anxiety - Chronic Hypertension, Benign - *Controlled Tension headache - [...] Dosage Effective Dates (start - stop) Status Vitamin D3 1,000 unit capsule take daily - Active Zyrtec 10 mg tablet take 1 tablet (10MG) by oral route every day as needed 10 MG - Active Aleve 220 mg tablet take 1 tablet (220MG) by oral route every 12 hours as needed as needed 220 MG - Active hydrochlorothiazide 25 mg tablet Take 1 tablet by mouth every day. 2012 - Active Vitamin B-100 Complex tablet takes 1 qd - Active carisoprodol 350 mg tablet Take 1 tablet by mouth every day. - Active metoprolol tartrate 100 mg tablet Take 1 tablet by mouth twice a day. - Active lisinopril 20 mg tablet take 1 tablet (20MG) by oral route every day 20 MG - Active acetaminophen 300 mg-codeine 30 mg tablet Take 0.5 tablets by mouth every 4 to 6 hours as needed for migraines. - Active Immunizations Vaccine Date Status Comments Flu (split) (3 yrs or older) cancelled - Cancelled reason: Duplicate order. Results Test Name Date and Time Measure Units Reference Range Abnormal Flag Comments Unknown Vital Signs Date / Time: Height Weight Pulse Rate Blood Pressure Temperature /11:03:00 57.50 in 169.00 lbs 78 /min 140/68 mm[Hg] 97.8 F Procedures Procedure Date Unknown Encounters Encounter Location Date Patient Visit [facility] Patient Visit [facility] Patient Visit [facility] Patient Visit [facility] Patient Visit [facility] Patient Visit [facility] Patient Visit [facility] Patient Visit [facility] Patient [facility] Patient Visit [facility] Patient Visit [facility] Patient Visit [facility] Patient Visit [facility] Advance Directives Directive Effective Date Unknown
--- OUTSIDE RECORDS SUMMARY | 2016-09-09 08:59 | XMS REPORT | Referral Summary ---
Author Author [facility] Organization [facility] Address Unknown Phone Unavailable Care Team Providers Care Oracle Wms Consultant Name Role Phone Romeo Espinosa Primary Care Physician [phone] Encounter Date(s): 05/09/16 - 05/09/16 [facility] [address] [place] [id number] Discharge Diagnosis: Situational stress Discharge Diagnosis: Benign essential hypertension Discharge Diagnosis: Overweight Discharge Diagnosis: Dizziness Discharge Diagnosis: Cervicalgia of mgndmplk-ancmmql-ggtcn region Discharge Diagnosis: Cervical nerve root impingement Discharge Disposition: 01-Home or Self Care Attending Physician: Brittani Lea APRN Admitting Physician: Brittani Lea APRN Vital Signs Most recent to 1 oldest [Reference Range]: Temperature Tympanic 36.4 degC [36.6-38.1 degC] *LOW* (05/09/16 1:37 PM) Peripheral Pulse 64 bpm Rate [60-100 bpm] (05/09/16 1:37 PM) Respiratory Rate 14 br/min [14-20 br/min] (05/09/16 1:37 PM) Blood Pressure 152/90 mmHg [90-140/60-90 mmHg] *HI* (05/09/16 1:37 PM) Problem List Condition Effective Dates Status Health Status Informant Benign essential Active hypertension (disorder)(Confirmed ) Ear Active infection(Confirmed) 1 Menopausal Active symptom(Confirmed) Migraine 1970 Active headache(Confirmed) Mixed anxiety Active depressive disorder(Confirmed) Overweight(Confirmed Active ) Rosacea(Confirmed) 2004 Active Tension [...] MOUTH ONCE DAILY, # 30 tabs, eRx: [place] [id number], TAKE ONE TABLET BY MOUTH ONCE DAILY Start Date: 04/17/16 Status: Ordered hydrocortisone 1 APPLICATION, Topical, As Indicated, Rash, 0 Refill(s) Start Date: 04/02/14 Status: Ordered Lasix 20 mg oral tablet 20 mg 1 tabs, Oral, Daily, Take dly for one week then take daily as needed for swelling., # 30 tabs, 0 Refill(s), Pharmacy: [place] [id number], 1 tabs Oral Daily,Instr:Take dly for one week then take daily as needed for swelling. Start Date: 12/27/15 Status: Ordered lisinopril 20 mg oral tablet 20 mg 1 tabs, Oral, Daily, KAROL PLEASE DO YOUR FASTING LABS THAT ARE ORDERED. , # 90 tabs, 0 Refill(s), Pharmacy: [place] [id number] Start Date: 02/03/16 Status: Ordered Metoprolol Tartrate 100 mg oral tablet See Instructions, TAKE ONE TABLET BY MOUTH ONCE DAILY, # 60 tabs, 5 Refill(s), eRx: [place] [address], TAKE ONE TABLET BY MOUTH TWICE DAILY Start Date: 06/24/15 Status: Ordered metroNIDAZOLE 0.75% topical cream 1 antony, Topical, BID, # 30 g, 1 Refill(s), Pharmacy: [place] [id number] Start Date: 07/26/15 Status: Ordered Tylenol with Codeine #3 oral tablet 1 tabs, Oral, q4hr, as needed for pain, [facility], # 30 tabs, 0 Refill(s ) Start Date: 05/09/16 Status: Ordered Vitamin B Complex oral tablet [...] and Plan Extracted from: Title: Office Visit Note-neck pain Author: Brittani Lea SCHEDULING REPRESENTATIVE Date: 05/09/16 Assessment/Plan 1.Cervicalgia of vjqcpajv-crzhccq-xbemw region Discussed with the patient I felt her pain was more muscular in nature with a component ofnerve impingement. Continue to utilize Tylenol with codeine one half tablet as needed. Do not drive if she is feeling well. OK to take Tylenol per package instructions as needed for pain. Icy hot or other muscle rub 2-3 x a day to affected area. Stretching exercises demonstrated. Do these 2-3 x a day. Encourage her to do the exercises she learned in physical therapy. Avoid lifting and other activities that exacerbate the pain. Strongly encourage her to do physical therapy again. She is not interested at this time. Feels like she is too busy. If she feels like her symptoms are progressing or not improving to let us know. 2.Dizziness Encourage good hydration. better today. No orthostasis. 3.Benign essential hypertension Recommend patient check her blood pressure daily. Goal blood pressures less than 140/90. If consistently elevated let us know. No medication changes for now. We'll continue the metoprolol once a day. 4.Overweight Encouraged healthy diet, physical activity. 5.Situational stress Encourage her to take time for herself. Take care of herself while her is inthe facility. 6.Cervical nerve root impingement As above.
--- OUTSIDE RECORDS SUMMARY | 2016-09-09 09:11 | XMS REPORT | Continuity of Care Document ---
Author Author [facility] Organization [facility] Address Unknown Phone Unavailable Allergies Medications Problems Procedures Results Encounters ACCT No. Visit Date/Time Discharge Status Pt. Type Provider Facility Loc./Unit Complaint [id number] 07/17/2013 09:48:00 07/17/2013 23 :59:59 CLS Outpatient [id number] 04/13/2013 11:02:00 04/13/2013 23 :59:59 CLS Outpatient
[2016-09-09] MEDS ORDERED: SULF1TAB42 PO (09:18)
[2016-09-09] MEDS ORDERED: CLOT12CR TOP (09:20)
--- NOTE | 2016-09-09 09:20 | ERPDOC ---
Departure Disposition Decision Date: Sep 09, 2016 Disposition Decision Time: 09:16 Disposition: 01 DISCHARGED HOME, SELF-CARE Impression Impression Impression: Primary Impression: Skin infection Severity: Mild Condition: Improved Seen By: Physician only Referrals: SARAH MCKEON MD (Family) 2 Days Problems/Meds/Labs Reviewed?: Yes Medications reviewed and manag: Yes Follow up care ordered?: Yes Mental Status: Alert, Oriented Scripts Clotrimazole (Lotrimin AF) 12 Gm Cream..g. 1 APPLIC TOP BID for 10 Days, #24 GM 1 Refill Prov: CARMELO MOONEY DO 09/09/16 Sulfamethoxazole/Trimethoprim (Bactrim Ds Tablet) 1 Each Tablet 1 TAB PO BID for 10 Days, #20 TAB 0 Refills Prov: VINICIOCARMELO Pizano DO 09/09/16 HPI - Skin General General Chief Complaint: Skin Rash/Abscess Stated Complaint: DISCHARGE BELLY BUTTON Time Seen by Provider: 08:59 Source: patient Exam Limitations: no limitations HPI - Skin General Initial Comments 75-year-old female presents to the emergency department with a chief complaint of mild erythema surrounding her bellybutton. Patient noted onset of symptoms one day ago. Symptoms have been persistent in nature since onset. She denies any pain or discomfort. Patient notes a mild slightly erythematous ring around her bellybutton. She states it is itchy. She denies any true pain or discomfort. She was at home when her symptoms began. Symptoms have been persistent in nature since onset. Symptoms had a gradual progression. She denies any other complaints or associated symptoms. No exacerbating or remitting factors. Occurred At: home Onset: Gradual Allergies: Coded Allergies: cephalexin (Verified Allergy, Intermediate, HEART POUNDS, 03/28/12) ciprofloxacin (Unverified Allergy, Unknown, 12/23/14) Past History Past Medical History Metabolic: hypertension Neurological: headaches, migraines Surgical History Denies Surgeries Family History Family History: Negative Vaccines Hx Influenza Vaccination: No Hx Pneumococcal Vaccination: No Social History Smoking Status: Never smoker Substance Use Type: does not use Alcohol Intake: none Review of Systems Constitutional Constitutional: DENIES: chills, fever Eyes General: DENIES: burning, itching Lids/Accessories: DENIES: erythema, swelling Vision: DENIES: acuity, blurring ENMT Ears: DENIES: drainage, pain Hearing: DENIES: hearing loss Balance: DENIES: ataxia, falling to one side Sinuses: DENIES: congestion, pain Nose: DENIES: nosebleeds, pain Mouth/Throat: DENIES: painful swallowing, sore throat Teeth: DENIES: pain Jaw: DENIES: pain Cardiovascular Cardiac: DENIES: chest pain, dyspnea on exertion Rhythm/Rate: DENIES: irregular beat, palpitations Vascular: DENIES: pedal edema, unilateral swelling Pulmonary Respiratory: DENIES: cough, dyspnea, pleuritic chest pain, sputum GI Upper Abdomen: DENIES: nausea, pain, vomiting Lower Abdomen: DENIES: diarrhea, pain General: DENIES: dysuria, pain Musculoskeletal General: DENIES: joint pain, tenderness Integumentary Skin: itching, rash Neurological General: DENIES: headache, numbness, weakness Psychiatric Psychiatric: DENIES: emotional instability, suicidal ideation/attempt Endocrine Endocrine: DENIES: polydipsia, polyphagia Hematologic/Lymphatic Hematologic/Lymphatic: DENIES: frequent nosebleeds, lymphadenopathy Allergic/Immunological Allergic/Immunoligical: DENIES: allergic reactions, hives Physical Exam General General Nourishment: well nourished, well developed, appears stated age, no acute distress, adult General Body Habitus: well groomed Vitals and Pain First Documented Vital Signs Date Time Temp Pulse Resp B/P Pulse Ox O2 Delivery O2 Flow Rate FiO2 09/09/16 08:58 97.9 77 20 186/78 99 Room Air Weight: Kilograms: 72.700 Height (feet): 4 Height (inches): 11.50 Triage Pain Scale: RN VS reviewed by Provider: Yes Normal Exams: Head: Normocephalic w/o trauma Eyes: Pupils are PERRLA w/ EOMI, No scleral icterus, irritation, or foreign bodies noted ENMT: No facial trauma, nasal exudates, pharyngeal erythema, or exudates are noted Dental: No fractured, loose, or missing teeth noted Neck: Full range of motion, without adenopathy, JVD, bruits or thyromegaly Chest/Resp: Clear all chan, with good airflow, and symmetry bilaterally CV: Regular rate and rhythm, without murmur or gallop, Pulses 2+ all extremities, capillary refill, <2 seconds all ext., no pedal edema noted Abdomen: Bowel sounds positive, soft, non-tender, non-distended, no hepatosplenomegaly, masses or bruits noted Lymphatic: No lymphadenopathy, or lymphedema noted Musculoskeletal: No tenderness, or deformity noted, good range of motion, all extremities Integumentary: hives, or bruising noted, hair and nails, without abnormality Neurologic: Patient is alert, and oriented, cranial nerves, motor/sensory/ cerebellar, exams w/o gross deficits, to observation Psychiatric: Patient exhibits, appropriate attention, emotion and affect Integumentary (brief) Comments Skin - small slightly erythematous ring is noted between the skin folds around the bellybutton. It is consistent with a potential candidal infection. Blanches with pressure. No sign of abscess or lymphangitis. There is no drainage or discharge from the umbilicus. Differential Diagnoses Considering: Abrasion, Cellulitis, Viral Exanthem, Other (candidal fungal infection) Progress Progress Progress Patient was provided with prescriptions for Lotrimin and Bactrim DS. Patient is discharged home in improved condition. Patient is to follow up as instructed. Patient is to return to the emergency Department if her condition worsens or changes in any manner. Patient is in agreement with the current plan of management. Patient is to follow up as instructed in 2 days for a recheck. CARMELO MOONEY DO Sep 09, 2016 09:20
[2016-09-09] MEDS ORDERED: CHOL100055 PO (09:23)
--- NOTE | 2016-09-09 09:45 | NUR ---
PT STATUS PT SHOWS NO SIGNS OF DISTRESS, DENIES ANY PAIN, HAS A FEW ADDITIONAL QUESTIONS FOR PROVIDER. INFORMATION GIVEN TO PROVIDER AND PT WILL BE RELEASED SHORTLY WITH RX. PT DENIES ANY FURTHER COMPLAINTS AND SHOWS NO SIGNS OF DISTRESS.
[2016-09-09 10:16] VITALS: BP 176/78; PULSE 76; RESP 18; TEMP 96.7; O2SAT 99
== END 2016-09-09 11:35 | disposition home or self-care (01) ==
LOC: ED 08:52
DX: L08.9 Local infection of the skin and subcutaneous tissue, unspecified (principal)

== ENCOUNTER → 2016-10-17 | Outpatient (CLI) | payer MEDICARE, BC ==
[~2016-10-17] MED LIST changes: +CHOL100055 PO; +CLOT12CR TOP; -MELO-31 PO; +SULF1TAB42 PO; -VITA1TAB21 PO; -[UNRECOGNIZED DRUG - OTHER] PO
== END ==
LOC: WC.BC 11:38
DX: Z12.31 Encounter for screening mammogram for malignant neoplasm of breast (principal)
CPT/HCPCS: 77063; G0202